=== PATIENT | female | born 1975 | race African-American/Black ===

== ENCOUNTER 2017-09-21 10:54 | Emergency (ER) | payer MEDICAID ==
[~2017-09-21] VITALS: Ht 180.3 cm; Wt 153.3 kg
[2017-09-21 10:58] VITALS: BP 148/87
--- NOTE | 2017-09-21 11:06 | NUR ---
PT AMBULATED TO ER BED 01
--- NOTE | 2017-09-21 11:07 | NUR ---
42 YO F PT BIB SELF W/ C/O DRY COUGH FOR 2 DAYS, DENIES SPUTUM OR SOB. AAOX4. GCS 15. CMS INTACT. RR EVEN AND UNLABORED. LUNGS CLEAR. ER MD NOTIFIED. PT NEEDS MET. SAFETY PRECAUTIONS IN PLACE. WILL CONTINUE TO MONITOR.
[2017-09-21 11:43] VITALS: BP 135/71
--- NOTE | 2017-09-21 11:44 | NUR ---
Patient discharged with v/s stable. Written and verbal after care instructions given and explained. Patient alert, oriented and verbalized understanding of instructions. Ambulatory with steady gait. All questions addressed prior to discharge. ID band removed. Patient advised to follow up with PMD. Rx of Albuterol, Prelone, Promethazine given. Patient educated on indication of medication including possible reaction and side effects. Opportunity to ask questions provided and answered.
== END 2017-09-21 11:44 | disposition home or self-care (01) ==
LOC: MED 10:54
DX: R05 Cough (principal); R03.0 Elevated blood-pressure reading, without diagnosis of hypertension; E66.01 Morbid (severe) obesity due to excess calories; J44.9 Chronic obstructive pulmonary disease, unspecified; Z68.41 Body mass index [BMI] 40.0-44.9, adult; Z88.8 Allergy status to other drugs, medicaments and biological substances
CPT/HCPCS: 99283

== ENCOUNTER 2017-11-11 12:11 | Emergency (ER) | payer SELFPAY ==
--- NOTE | 2017-11-11 12:51 | NUR ---
PATIENT LEFT WITHOUT BEING SEEN BY DR. cruz. NO FURTHER CARE PROVIDED FOR PATIENT.
== END 2017-11-11 12:52 | disposition left against medical advice (07) ==
LOC: MED 12:11
DX: Z53.21 Procedure and treatment not carried out due to patient leaving prior to being seen by health care provider (principal)

== ENCOUNTER 2017-11-16 09:11 | Emergency (ER) | payer SELFPAY ==
[~2017-11-16] VITALS: Ht 180.3 cm; Wt 154.2 kg
--- NOTE | 2017-11-16 09:30 | NUR ---
PT AMBULATES TO BED 8
[2017-11-16 09:35] VITALS: BP 146/85
--- NOTE | 2017-11-16 09:35 | NUR ---
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 Denies CP, No sob. LS-clr. pt is aaox4; skin intact; bed down; bedrail up x 1; er md aware and notified of pt status. med hx:COPD rx:atrovent, albuterol, breo
[2017-11-16 09:40] VITALS: BP 146/85
--- NOTE | 2017-11-16 09:45 | NUR ---
Patient being evaluated by physician at bedside.
--- NOTE | 2017-11-16 10:18 | NUR ---
PATIENT ELOPED FROM FACILITY. DISCHARGE INSTRUCTIONS NOT GIVEN TO PATIENT. DR. CALVO NOTIFIED.
== END 2017-11-16 10:18 | disposition left against medical advice (07) ==
LOC: MED 09:11
DX: J44.9 Chronic obstructive pulmonary disease, unspecified (principal); Z88.1 Allergy status to other antibiotic agents; Z98.890 Other specified postprocedural states
CPT/HCPCS: 99283